=== PATIENT | female | born 1955 | race Caucasian/White ===

== ENCOUNTER 2020-06-14 18:15 | Emergency (ER) | payer SELFPAY ==
[2020-06-14 18:29] VITALS: BP 107/62; PULSE 86; TEMP 98.3; BMI 17.6
[2020-06-14] MEDS ORDERED: FAMOTIDINE 20 MG TABLET PO ONE (18:42)
[2020-06-14] MEDS ORDERED: predniSONE 20 MG TABLET (UD) PO ONE (18:42)
[2020-06-14] MEDS ORDERED: FAMOTIDINE 20 MG TABLET ONE (18:45)
[2020-06-14] MEDS ORDERED: predniSONE 20 MG TABLET (UD) ONE (18:46)
== END 2020-06-14 20:16 | disposition home or self-care (01) ==
LOC: JER 18:15
PROC: 3E023GC Introduction of Other Therapeutic Substance into Muscle, Percutaneous Approach (ICD-10-PCS; principal; 2020-06-14)
DX: T78.40XA Allergy, unspecified, initial encounter (principal)
CPT/HCPCS: 99284-25